=== PATIENT | female | born 2005 | race Caucasian/White ===

== ENCOUNTER 2025-05-12 12:42 | Outpatient (CLI) | payer BC | END 2025-05-12 12:43 | disposition home or self-care (01) | LOC: CSHULT 12:42 | PROVIDERS: ATTEND Student in an Organized Health Care Education/Training Program | DX: R10.2 Pelvic and perineal pain (principal); N83.292 Other ovarian cyst, left side; R93.41 Abnormal radiologic findings on diagnostic imaging of renal pelvis, ureter, or bladder | CPT/HCPCS: 76856 ==